=== PATIENT | male | born 1970 | race Caucasian/White ===

== ENCOUNTER 2025-03-05 18:06 | Emergency (ER) | payer OTHER, SELFPAY ==
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
[2025-03-05 18:14] VITALS: BP 157/99; PULSE 108; RESP 20; TEMP 37.1; O2SAT 97
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
[2025-03-05 19:00] VITALS: BP 145/94; PULSE 107; RESP 23; O2SAT 96
[2025-03-05] MEDS: IBUPROFEN 200 MG TABLET 600 MG PO (19:35)
[2025-03-05 20:08] LABS: Hemoglobin* 14.2 gm/dL (13.5-17.5)
[2025-03-05 20:34] LABS: Chloride* 103 mmol/L (96-114); Potassium* 4.3 mmol/L (3.6-5.1); Sodium* 136 mmol/L (135-149)
[2025-03-05 20:37] LABS: Anion Gap 6 mEq/L (7-15); Blood Urea Nitrogen* 13 mg/dL (7-30); Carbon Dioxide* 27 mmol/L (20-32); Creatinine* 0.9 mg/dL (0.5-1.5); Estimated Glomerular Filt Rate 101 ml/min
[2025-03-05 20:38] LABS: Calcium* 8.8 mg/dL (8.4-10.6); Glucose* 89 mg/dL (60-115)
[2025-03-05 20:41] LABS: Appearance Urine Clear (Clear)
== END 2025-03-05 21:07 | disposition home or self-care (01) ==
PROVIDERS: Emergency Provider Family Medicine
DX: S09.90XA Unspecified injury of head, initial encounter (principal); R00.0 Tachycardia, unspecified; R51.9 Headache, unspecified; R10.9 Unspecified abdominal pain; V43.62XA Car passenger injured in collision with other type car in traffic accident, initial encounter
CPT/HCPCS: 36415; 70450; 71045; 74177; 80048; 81001; 85018; 94761; 99284; 99285; 99291; A9270; G0390; Q9967